=== PATIENT | female | born 1970 | race Caucasian/White ===

== ENCOUNTER 2016-10-13 08:51 | Inpatient (IN) | payer MEDICARE, OTHER ==
[2016-10-06 16:50] LABS: HEMATOCRIT 44.6 % (36.0-48.0)
--- NOTE | ~2016-10-13 | DS ---
Discharge Summary [facility] [address] [place]. [address] NAME: DILIP PEÑA : 68 STATUS : DIS IN PAT#: [id number] AGE: 46 ADM/REG DATE : 10/13/16 MR#: [id number] REPORT SERV DATE: 10/28/16 DICTATED BY: GALO LOVE II DATE: 10/27/16 REPORT STATUS : Draft TRANSCRIBED BY: JASON DATE: 10/27/16 Data Collection from hospitalization DISCHARGE DIAGNOSES: 1. Right greater than left lower extremity radiculopathy. 2. Lumbar spinal stenosis, L4-L5 and L5-S1. 3. Discogenic low back pain, L4-L5 and L5-S1. 4. Hypertension. 5. Anxiety and depression. 6. Cataracts. 7. Multiple sclerosis. 8. Rheumatoid arthritis. 9. Scoliosis. 10.Tobacco use. CONSULTATIONS: None. PROCEDURES PERFORMED: Right complete facetectomy, L4-L5 and L5-S1; interbody arthrodesis, L4 L5 and L5-S1; application of prosthetic devices, L4-L5 and L5-S1; posterolateral arthrodesis, L4-L5 and L5-S1; posterior segmental instrumentation, L4-L5 and L5-S1; use of local autograft, allograft substitute, and bone morphogenetic protein; use of microscope and stereotactic spinal imaging, 10/13/2016. PATHOLOGY: Spine: Lumbar bone and tissue-fibrocartilage consistent with intervertebral disk, benign bone fragments with degenerative changes. DISCHARGE MEDICATIONS: ProAir two puffs via inhaler as needed, Valium 5 mg every six hours as needed, Depakote ER 500 mg at bedtime, Lexapro 20 mg at bedtime, Flonase nasal spray one spray nasally as needed, Neurontin 600 mg four times a day, Avonex 30 mcg IM every seven days, MS Contin 30 mg every 12 hours, Zofran 8 mg every 12 hours, Roxicodone 15 mg every six hours as needed, Maxalt 10 mg as needed, multivitamins as instructed. CONDITION AT DISCHARGE: Stable. DISPOSITION: The patient was discharged home on a regular diet with activities as instructed. She would follow up with me, 11/05/2016. HOSPITAL COURSE: This is a 46-year-old female, who had complained of lumbar spine-related symptoms. The symptoms are located in her lower back with radiation into the bilateral lower extremities with associated numbness, tingling, and weakness. The patient has lumbar spinal stenosis and discogenic low back pain as well as right greater than left lower extremity radiculopathy. Treatment options were discussed and it was elected to proceed with surgical intervention. She was admitted at this time for further evaluation and treatment. Upon admission, the patient was taken to the operating room, where she underwent the above- mentioned procedure. She tolerated this well and there were no complications. On postop day #1, she was stable. She had a normal respiratory effort. She was in no acute distress. Discharge Summary [facility] [id number] [place]. [address] NAME: DILIP PEÑA : 68 STATUS : DIS IN [facility]#: [id number] AGE: 46 ADM/REG DATE : 10/13/16 MR#: [id number] REPORT SERV DATE: 10/28/16 DICTATED BY: GALO LOVE II DATE: 10/27/16 REPORT STATUS : Draft TRANSCRIBED BY: JASON DATE: 10/27/16 Over the next couple of days, she continued to progress. She still complained of a lot of back pain. Lower extremity radiculopathy was improving. She does have a history of opioid tolerance. We encouraged her to mobilize. Discharge planning was performed. On 10/17/2016, she said her legs were feeling better. She was ambulating well. Discharge instructions were given. Due to her improved and stable condition, she was discharged home with the above-stated instructions. Information collected by: Jadyn Avery I submit the above information as my discharge summary. LIZETH/JASON Galo Love II, M.D. / [id number] CC: Jesus Flores II, M.D.
--- NOTE | ~2016-10-13 | OP ---
Record Of Operation [facility] [address] [place]. [address] NAME: DILIP PEÑA : 68 STATUS : DIS IN PAT#: [id number] AGE: 46 ADM/REG DATE : 10/13/16 MR#: [id number] REPORT SERV DATE: 10/19/16 DICTATED BY: GALO LOVE II DATE: 10/16/16 REPORT STATUS : Draft TRANSCRIBED BY: MODMariana DATE: 10/16/16 DATE OF PROCEDURE: PREOPERATIVE DIAGNOSES: 1. Right greater than left lower extremity radiculopathy. 2. Lumbar spinal stenosis, L4-L5, L5-S1. 3. Discogenic low back pain, L4-L5, L5-S1. POSTOPERATIVE DIAGNOSES: 1. Right greater than left lower extremity radiculopathy. 2. Lumbar spinal stenosis, L4-L5, L5-S1. 3. Discogenic low back pain, L4-L5, L5-S1. PROCEDURES: 1. Right complete facetectomy, L4-L5, L5-S1. 2. Interbody arthrodesis, L4-L5, L5-S1. 3. Application of prosthetic devices, L4-L5, L5-S1. 4. Posterolateral arthrodesis, L4-L5, L5-S1. 5. Posterior segmental instrumentation, L4-L5, L5-S1. 6. Use of local autograft, allograft substitute, and bone morphogenic protein. 7. Use of the microscope and stereotactic spinal imaging. SURGEON: Galo Love M.D. FLUIDS: 1800 mL LR. ESTIMATED BLOOD LOSS: 100 mL. DRAIN: One drain. COMPLICATIONS: No complications. IMPLANTS: Alphatec. PREOPERATIVE HISTORY: This is a very friendly 45-year-old female, who reports significant discogenic back pain, worse with coughing, sneezing, and sitting. She also described significant radiating buttock pain into the right especially. The pain radiates into the buttock and into the leg. We discussed the pros and cons of surgery to decrease back pain and leg pain respectively. I also had this conversation extensively with her family pre- and post-operatively. We discussed the risks of surgery which include, but not limited to failure of the surgery to decrease back pain and leg pain. Again, we discussed the rates of success to decrease back pain and leg pain respectively. Other risks were discussed. DESCRIPTION OF PROCEDURE: After informed consent was obtained, the patient was brought to Record Of Operation [facility] [address] [place]. [address] NAME: DILIP PEÑA : 68 STATUS : DIS IN PAT#: [id number] AGE: 46 ADM/REG DATE : 10/13/16 MR#: [id number] REPORT SERV DATE: 10/19/16 DICTATED BY: GALO LOVE II DATE: 10/16/16 REPORT STATUS : Draft TRANSCRIBED BY: JASON DATE: 10/16/16 the operating room at her request and general anesthesia achieved. She was placed in a prone position. The back was prepped and draped in a sterile fashion. The intraoperative CT scan was completed following placement of the stereotactic pin into the left iliac crest. The right-sided minimally invasive incision was now performed and the quadrant retractor placed. The facets were identified at L4-L5 and L5-S1 and facet capsules removed. With the microscope in place, the facetectomy was performed on the right at L4-L5. The pedicle to pedicle decompression was achieved including decompression of the central canal. We did find somewhat surprising amount of stenosis, more so than the MRI had indicated. The central canal was well decompressed and the ligamentum flavum removed and the dura generously decompressed centrally as well as in the lateral recesses. At this point, the interbody arthrodesis was initiated with diskectomy. The endplates were prepared with the curettes and the rosa and the pituitary rongeurs. Punctate bleeding bone was identified on both endplates. Following irrigation, the local autograft, allograft substitute, and bone morphogenic protein were placed into the anterior column. Next, the prosthetic device was well placed into the anterior column. Next, the L5-S1 level was treated in a similar manner with aggressive facetectomy. The spinal laminar junction was taken down and the L5 and S1 nerve roots well decompressed. Next, the interbody arthrodesis was initiated with the diskectomy. The diskectomy was completed and the endplates prepared. The prosthetic device was placed at L5-S1 following application of local autograft and allograft substitute into the anterior column. Stereotactic guidance was used to place the pedicle screws into L4-S1 on the right. We placed percutaneous screws on the left at L4 and S1. A repeat CT scan confirmed acceptable placement of the implants. The rods were then well assembled and final tightening performed. Next, the decortication was performed on the right of the transverse prostheses of L4 and L5 and the sacral ala. Local autograft, allograft substitute, and bone morphogenic protein were placed along these decorticated surfaces. A deep drain was placed followed by standard closure, and the patient was extubated transferred to PACU in stable condition. CARLOS/JASON Galo Love II, M.D. / [id number] CC: Galo Love II, M.D. Record Of [address] [address] NAME: DILIP PEÑA : 68 STATUS : DIS IN PAT#: [id number] AGE: 46 ADM/REG DATE : 10/13/16 MR#: [id number] REPORT SERV DATE: 10/19/16 DICTATED BY: GALO LOVE II DATE: 10/16/16 REPORT STATUS : Draft TRANSCRIBED BY: JASON DATE: 10/16/16 Jesus Buckner MD
[~2016-10-13 08:51] MED LIST: ADDERALL20 MG PO; ATARAX50B PO; AVONEX IM; DEPAKOTEER PO; ESTRACE1 MG PO; ESTRADIOL2 MG OR; FIORICET OR; FLONASE NAS; LAMICTAL10 PO; LEXAPRO20 PO; LIOR10 PO; MAXALT10 MG PO; MULT VITAMINS; NEUR400 PO; NEUR600 PO; OPANA ER15 MG PO; PROAIR HFA INH; PROZAC PO; PROZAC40 MG PO; ROXICODONE15 MG PO; ROXICODONE30 MG PO; SOMATAB PO; V5 PO; ZOFRANODT8 PO
[2016-10-17] MEDS ORDERED: MSCONTIN PO (09:25)
[2016-10-17] MEDS ORDERED: ROXICODONE15 MG PO (09:25)
[2016-10-17] MEDS ORDERED: V5 PO (09:25)
== END 2016-10-17 12:06 | disposition home or self-care (01) | DRG 460 ==
LOC: SDC/OF 08:51 → 3SO 19:00
PROVIDERS: Orthopaedic Surgery
PROC: 0SG00AJ Fusion of Lumbar Vertebral Joint with Interbody Fusion Device, Posterior Approach, Anterior Column, Open Approach (ICD-10-PCS; principal; 2016-10-13 10:45)
PROC: 0SG30AJ Fusion of Lumbosacral Joint with Interbody Fusion Device, Posterior Approach, Anterior Column, Open Approach (ICD-10-PCS; 2016-10-13 10:45)
PROC: 4A11X4G Monitoring of Peripheral Nervous Electrical Activity, Intraoperative, External Approach (ICD-10-PCS; 2016-10-13 10:45)
DX: M51.16 Intervertebral disc disorders with radiculopathy, lumbar region (principal); J44.9 Chronic obstructive pulmonary disease, unspecified; M51.17 Intervertebral disc disorders with radiculopathy, lumbosacral region; F17.210 Nicotine dependence, cigarettes, uncomplicated
CPT/HCPCS: 82962; 85014; 85018; 87641; 88304; 88311; 97116-GP; 97161-GP; A9270-GY; C1713; C1768; J0690; J0735; J1170; J2250; J2405; J2710; J3010; J3475

== ENCOUNTER 2016-10-27 12:26 | Emergency (ER) | payer MEDICARE ==
[~2016-10-27 12:26] MED LIST changes: +MSCONTIN PO
[2016-10-27 13:10] LABS: BASOPHILS 0.6 %; BASOPHILS ABSOLUTE 0.06 10/3/uL (0.0-0.16); EOSINOPHILS 9.7 %; EOSINOPHILS ABSOLUTE 1.01 10/3/uL (0.0-0.53); HEMATOCRIT 41.1 % (36.0-48.0); HEMOGLOBIN 13.8 g/dL (12.0-16.0); IMMATURE GRANULOCYTES 0.2 %; IMMATURE GRANULOCYTES ABSOLUTE 0.02 10/3/uL (0.0-0.11); LYMPHOCYTES 41.1 %; LYMPHOCYTES ABSOLUTE 4.29 10/3/uL (0.67-4.30); MEAN CORPUS HGB CONC 33.6 g/dL (32.0-36.0); MEAN CORPUSCULAR HEMOGLOB 29.9 pg (26.0-34.0); MEAN CORPUSCULAR VOLUME 89.2 fL (80-100); MEAN PLATELET VOLUME 10.7 fL (9.2-13.0); MONOCYTES 5.7 %; NEUTROPHILS 42.7 %; NEUTROPHILS ABSOLUTE 4.46 10/3/uL (2.02-8.40); RBC DISTRIBUTION WIDTH 13.3 % (12.0-16.0); RED CELL COUNT 4.61 10/6/uL (4.0-5.6); WHITE BLOOD CELLS 10.4 10/3/uL (4.5-10.5)
[2016-10-27 13:11] LABS: MANUAL DIFF NO %; PLATELET COUNT 354 10/3/uL (150-400)
[2016-10-27 13:17] LABS: PARTIAL THROMBO TIME 29.8 SEC (22.5-37.2)
[2016-10-27 13:25] LABS: BUN (BLOOD UREA NITROGEN) 11 MG/DL (6-23); CALCIUM, SERUM 9.3 MG/DL (8.5-10.4); CHEST PAIN PROFILE TAT 0 Hrs 21 Mins; CHLORIDE, SERUM 101 MMOL/L (96-112); CO2 (CARBON DIOXIDE) 32 MMOL/L (24-34); CREATININE 0.76 MG/DL (0.55-1.02); GFR AFRICAN AMERICAN 108 ML/MIN (>=60); GFR NON AFRICAN AMERICAN 93 ML/MIN (>=60); GLUCOSE, SERUM 90 MG/DL (60-99); POTASSIUM, SERUM 3.9 MMOL/L (3.5-5.3); SODIUM, SERUM 138 MMOL/L (135-148); TROPONIN I <0.02 NG/ML (<0.05)
[2016-10-27 14:48] LABS: ASCORBIC ACID (UR NOT ORDER) NEG (NEG); BILIRUBIN, URINE NEGATIVE (NEG); KETONE, URINE NEGATIVE (NEG); LEUKOCYTE ESTERASE(NOT OR LARGE (NEG); NITRITE (URINE) POS (NEG); WBC (NOT ORDERED) (RFLEX) 50 (0-5)
== END 2016-10-27 16:55 | disposition home or self-care (01) ==
LOC: ER 12:26
PROVIDERS: Nurse Practitioner
DX: N39.0 Urinary tract infection, site not specified (principal); R47.9 Unspecified speech disturbances; F19.90 Other psychoactive substance use, unspecified, uncomplicated; I10 Essential (primary) hypertension; F17.200 Nicotine dependence, unspecified, uncomplicated; Z88.8 Allergy status to other drugs, medicaments and biological substances; Z79.899 Other long term (current) drug therapy
CPT/HCPCS: 70450; 71020; 80048; 81001; 83735; 84484; 85025; 85610; 85730; 87086; 93005; 96374; 96375; 99285; J2405